=== PATIENT | female | born 1955 | race Caucasian/White ===

== ENCOUNTER → 2024-05-15 11:22 | Outpatient (REF) | payer OTHER, SELFPAY | LOC: WDC 11:22 | PROVIDERS: ATTENDING PHYSICIAN Obstetrics & Gynecology; FAMILY PHYSICIAN Family Medicine | DX: Z12.31 Encounter for screening mammogram for malignant neoplasm of breast (principal) | CPT/HCPCS: 77063; 77067 ==

== ENCOUNTER → 2024-07-03 14:38 | Outpatient (REF) | payer OTHER, SELFPAY | LOC: DHSLP 14:38 | PROVIDERS: ATTENDING PHYSICIAN Family Medicine | DX: G47.33 Obstructive sleep apnea (adult) (pediatric) (principal); R06.83 Snoring | CPT/HCPCS: 95800 ==

== ENCOUNTER → 2024-11-10 09:43 | Outpatient (REF) | payer OTHER, SELFPAY | LOC: RAD 09:43 | PROVIDERS: ATTENDING PHYSICIAN Orthopaedic Surgery Hand Surgery; FAMILY PHYSICIAN Family Medicine | DX: M19.011 Primary osteoarthritis, right shoulder (principal) | CPT/HCPCS: 73200 ==